=== PATIENT | female | born 1980 | race Caucasian/White ===

== ENCOUNTER 2017-03-29 20:42 | Emergency (ER) | payer OTHER, MEDICAID ==
[~2017-03-29] VITALS: Ht 165.1 cm; Wt 71.2 kg
[2017-03-29 20:42] VITALS: BP_SYST 120
[~2017-03-29 20:42] MED LIST: CARB200T68 PO; CARB400T PO; HYDR-1189 PO; KLO.5 PO; LEVO25TA58 PO; LINA145C PO; TRAZ-126 PO; VENL37.510 PO
[2017-03-29] MEDS ORDERED: MORPHINE 4 MG/ML INJ. SYRINGE IVP ONE ×2 (21:00→22:30)
[2017-03-29] MEDS ORDERED: NACL 0.9% 1,000 ML IV ONE (21:00)
[2017-03-29] MEDS ORDERED: ONDANSETRON HCL 4 MG/2 ML VIAL IVP ONE (21:00)
[2017-03-29 21:20] LABS: BILIRUBIN,URINE NEGATIVE (NEGATIVE); BLOOD, URINE NEGATIVE (NEGATIVE); CLARITY/URINE CLEAR (CLEAR); COLOR,URINE YELLOW (YELLOW); GLUCOSE,URINE NEGATIVE (NEGATIVE); KETONES,URINE NEGATIVE (NEGATIVE); LEUKOCYTE ESTERASE ,URINE NEGATIVE (NEGATIVE); NITRITE, URINE NEGATIVE (NEGATIVE); PROTEIN URINE NEGATIVE (NEGATIVE); UROBILINOGEN,URINE 0.2 (0.2-1.0)
[2017-03-29 21:24] LABS: BASOPHILS % (AUTO) 0.3 % (0.0-2.0); EOSINOPHILS # (AUTO) 0.3 K/uL (0.0-0.4); EOSINOPHILS % (AUTO) 3.3 % (0.0-4.0); HEMATOCRIT 37.4 % (36-48); HEMOGLOBIN 12.9 g/dL (12.0-16.0); LYMPHOCYTES # (AUTO) 2.2 K/uL (1.0-5.5); LYMPHOCYTES % (AUTO) 24.4 % (20.5-51.5); MEAN CORPUSCULAR HEMOGLOBIN 31 pg (27-31); MEAN CORPUSCULAR HGB CONC 35 % (32-36); MEAN CORPUSCULAR VOLUME 89 fL (79.0-98.0); MONOCYTES # (AUTO) 0.6 K/uL (0.0-1.0); MONOCYTES % (AUTO) 6.4 % (1.7-9.3); NEUTROPHILS % (AUTO) 65.6 % (40.0-70.0); PLATELET COUNT (AUTO) 334 K/uL (130-430); RED BLOOD CELL COUNT(AUTO) 4.19 MIL/uL (4.2-6.2); RED CELL DISTRIBUTION WIDTH 12.4 % (9.0-15.0); WHITE BLOOD COUNT (AUTO) 9.1 K/uL (4.8-10.8)
[2017-03-29 21:28] LABS: CREATININE 0.92 mg/dL (0.55-1.30); POTASSIUM 3.4 mmol/L (3.5-5.1)
[2017-03-29 21:33] LABS: ALBUMIN 4.1 g/dL (3.4-4.8); TOTAL BILIRUBIN 0.2 mg/dL (0.0-1.0); TOTAL PROTEIN, SERUM 7.4 g/dL (6.4-8.3)
[2017-03-30 00:02] VITALS: BP_SYST 116
== END 2017-03-30 00:02 | disposition home or self-care (01) ==
LOC: SED 20:42
DX: N83.202 Unspecified ovarian cyst, left side (principal); J45.909 Unspecified asthma, uncomplicated; E07.9 Disorder of thyroid, unspecified
CPT/HCPCS: 36415; 74176; 80053; 81003; 81025; 85025; 96361; 96374; 96375; 96376; 99285; J2270; J2405; J7030

== ENCOUNTER 2018-06-19 08:58 | Emergency (ER) | payer OTHER, MEDICAID ==
[~2018-06-19] VITALS: Ht 162.6 cm; Wt 69.9 kg
[~2018-06-19 08:58] MED LIST changes: +CARB200T2 PO; -CARB200T68 PO; +LEVO25TA2 PO; -LEVO25TA58 PO
[2018-06-19 09:01] VITALS: BP_SYST 145
--- NOTE | 2018-06-19 09:11 | NUR ---
MANUELA BACK TO BED #7 AND WILL ASSUME CARE. PT STATES THAT SHE HAS AN OUT LABIAL FOLD ABSCESS, STATES IT STARTED AFTER SHAVING TWO WEEKS AGO. STATES NO DRAINAGE. +PAIN
--- NOTE | 2018-06-19 09:30 | NUR ---
DR PADILLA AT BEDSIDE FOR EVALUATION
[2018-06-19] MEDS ORDERED: LIDOCAINE 1% 10 MG/ML, 20 ML MDV INJ ONE (09:45)
--- NOTE | 2018-06-19 09:45 | NUR ---
DR PADILLA AT BEDSIDE FOR PROCEDURE. PT VERY EMOTIONAL OVER PROCEDURE. GAVE EMOTIONAL SUPPORT TO PT DURING PROCEDURE.
[2018-06-19 10:07] VITALS: BP_SYST 138
--- NOTE | 2018-06-19 10:12 | NUR ---
Patient given written and verbal discharge instructions and verbalizes understanding. ER MD discussed with patient the results and treatment provided. Patient in stable condition. ID arm band removed. Rx of TRAMADOL, CLINDAMYCIN given. Patient educated on pain management and to follow up with PMD. Pain Scale 0/10. Opportunity for questions provided and answered. Medication side effect fact sheet provided.
== END 2018-06-19 10:12 | disposition home or self-care (01) ==
LOC: SED 08:58
DX: N76.4 Abscess of vulva (principal); J45.909 Unspecified asthma, uncomplicated; E03.9 Hypothyroidism, unspecified; Z79.899 Other long term (current) drug therapy
CPT/HCPCS: 56405; 99284; J2001